=== PATIENT | female | born 1975 | race Caucasian/White ===

== ENCOUNTER 2018-10-15 15:17 | Outpatient (CLI) | payer OTHER | END 2018-10-15 15:18 | disposition home or self-care (01) | LOC: BICMAMMO 15:17 | PROVIDERS: ATTEND Nurse Practitioner Women's Health | DX: Z12.31 Encounter for screening mammogram for malignant neoplasm of breast (principal); R92.1 Mammographic calcification found on diagnostic imaging of breast | CPT/HCPCS: 77063; 77067 ==